=== PATIENT | male | born 1975 | race Caucasian/White ===

== ENCOUNTER 2019-05-31 20:00 | Outpatient (CLI) | payer BC, SELFPAY | END 2019-05-31 20:01 | disposition home or self-care (01) | LOC: SLEEP 06-01 08:59 | PROVIDERS: PCP Family Medicine; Visit Provider Family Medicine | DX: G47.33 Obstructive sleep apnea (adult) (pediatric) (principal) | CPT/HCPCS: 95810; 95811 ==

== ENCOUNTER 2020-10-28 05:09 | Outpatient (CLI) | payer BC, SELFPAY ==
[2020-10-28 08:21] VITALS: BP 133/80; PULSE 70; RESP 18; TEMP 37.2; O2SAT 99; BMI 40.8
--- NOTE | 2020-10-28 10:37 | PC.NURSE ---
Patient DC'd from Covid waiting room, ambulatory to POV with zero difficulties
== END 2020-10-28 05:10 | disposition home or self-care (01) ==
LOC: ER 05:11
PROVIDERS: PCP Family Medicine; Visit Provider Nurse Practitioner Family
DX: U07.1 COVID-19 (principal)